=== PATIENT | female | born 1990 | race Caucasian/White ===

== ENCOUNTER 2017-01-01 21:39 | Emergency (ER) | payer SELFPAY ==
[~2017-01-01] VITALS: Ht 167.6 cm; Wt 64.5 kg
[2017-01-01 21:40] VITALS: BP 147/82; PULSE 75; RESP 16; TEMP 98.1; O2SAT 96
== END 2017-01-02 00:38 | disposition left against medical advice (07) ==
LOC: NED 21:39
DX: J00 Acute nasopharyngitis [common cold] (principal)
CPT/HCPCS: 99281

== ENCOUNTER 2017-06-21 18:09 | Emergency (ER) | payer SELFPAY ==
[~2017-06-21] VITALS: Ht 167.6 cm; Wt 65.0 kg
[2017-06-21 18:10] VITALS: BP 134/69; PULSE 70; RESP 16; TEMP 97.8; O2SAT 98
== END 2017-06-21 21:54 | disposition left against medical advice (07) ==
LOC: NED 18:09
DX: N64.4 Mastodynia (principal); Z53.21 Procedure and treatment not carried out due to patient leaving prior to being seen by health care provider
CPT/HCPCS: 99281

== ENCOUNTER 2017-06-26 11:02 | Emergency (ER) | payer MEDICAID ==
[~2017-06-26] VITALS: Ht 167.6 cm; Wt 63.6 kg
[2017-06-26 11:07] VITALS: BP 125/77; PULSE 76; RESP 16; TEMP 98.2; O2SAT 99
[2017-06-26] MEDS ORDERED: BUSP15TA PO (13:10)
[2017-06-26] MEDS ORDERED: GABA300C5 PO (13:10)
--- NOTE | 2017-06-26 13:13 | PD ---
HPI Chief Complaint: Head Injury Time Seen by Provider: 13:00 Travel History International Travel<30 days: No Contact w/Intl Traveler<30days: No Traveled to known affect area: No History of Present Illness HPI Patient is a 26-year-old female presents to emergency room with complaints of headache, neck pain and back pain. Patient reports that she was outside of her home yesterday putting up [place] decorations, patient reports that she fell backwards off a ladder and hit her head on the ground. Reports that she did have loc for a few minutes. Denies taking any anticoagulants at this time. Patient reports that the accident occurred yesterday around 5 PM. Patient reports that she woke up today with posterior headache, reports that the back of her neck as well as her upper back has been hurting her. Denies any chest pain/sob. Denies any abdominal pain. Denies any problems with ambulation. No pain to her extremities. She did not take any medications today for relief of symptoms. PFSH Past Medical History Anxiety: Yes Cancer: No Cardiovascular Problems: No Diabetes: No Diminished Hearing: No Endocrine: No Gastrointestinal Disorders: No Genitourinary: No Hepatitis: No Hiatal Hernia: No Hypertension: No Musculoskeletal: No Neurologic: No Psychiatric: No Reproductive: No Respiratory: Yes (ASTHMA CHILD) Thyroid Disease: No ?: Not LMP: 06/03/2017 : 3 Para: 2 Past Surgical History Abdominal Surgery: No AICD: No Cardiac Surgery: No Ear Surgery: No Endocrine Surgery: No Eye Surgery: No Genitourinary Surgery: No Gynecologic Surgery: No Joint Replacement: No Neurologic Surgery: No Oral Surgery: No Pacemaker: No Thoracic Surgery: No Other Surgery: Yes (RT BREAST MRSA IN MILK DUCT ) Social History Alcohol Use: No Tobacco Use: Yes (2 CIG DAILY) Substance Use: Yes (SEE BELOW) Allergies-Medications (Allergen,Severity, Reaction): Coded Allergies: naproxen (Unverified Allergy, Severe, 06/26/17) penicillin G (Unverified Allergy, Severe, HIVES, 06/26/17) tramadol (Unverified Allergy, Intermediate, Irritation, 06/26/17) Reported Meds & Prescriptions Reported Meds & Active Scripts Active Reported Buspirone (Buspirone HCl) 15 Mg Tab 15 Mg PO TID Gabapentin 300 Mg Cap 300 Mg PO BID Review of Systems General / Constitutional: No: Fever Eyes: No: Visual changes HENT: Positive: Headaches, Neck Pain Cardiovascular: No: Chest Pain or Discomfort Respiratory: No: Shortness of Breath Gastrointestinal: No: Abdominal Pain Genitourinary: No: Dysuria Musculoskeletal: Positive: Pain (upper back pain) Skin: No Rash Neurologic: No: Weakness Psychiatric: No: Depression Endocrine: No: Polydipsia Hematologic/Lymphatic: No: Easy Bruising Physical Exam Narrative GENERAL: mild distress SKIN: Focused skin assessment warm/dry. HEAD: Atraumatic. Normocephalic. EYES: Pupils equal and round. No scleral icterus. No injection or drainage. ENT: No nasal bleeding or discharge. Mucous membranes pink and moist. NECK: Trachea midline. No JVD. NO midline tenderness, patient with paraspinal tenderness CARDIOVASCULAR: Regular rate and rhythm. No murmur appreciated. RESPIRATORY: No accessory muscle use. Clear to auscultation. Breath sounds equal bilaterally. GASTROINTESTINAL: Abdomen soft, non-tender, nondistended. Hepatic and splenic margins not palpable. MUSCULOSKELETAL: No obvious deformities. No clubbing. No cyanosis. No edema. patient with upper and mid thoracic paraspinal tenderness, patient with no midline tenderness to t or l spine, patient ambulating in ER with normal gait NEUROLOGICAL: Awake and alert. No obvious cranial nerve deficits. Motor grossly within normal limits. Normal speech. PSYCHIATRIC: Appropriate mood and affect; insight and judgment normal. Data Data Last Documented VS Vital Signs Date Time Temp Pulse Resp B/P (MAP) Pulse Ox O2 Delivery O2 Flow Rate FiO2 06/26/17 13:19 69 17 119/68 (85) 99 Room Air 06/26/17 11:[address] Brain W/O Iv Contrast(Rout) (06/26/17 ) Spine, Lumbar - Ltd (Ap & Lat) (06/26/17 13:03) Spine, Thoracic-Ap/Lat/Sw(3vw) (06/26/17 13:03) Ct Cerv Spine W/O Contrast (06/26/17 13:03) Acetaminophen (Tylenol) (06/26/17 13:15) MDM Medical Decision Making Medical Screen Exam Complete: Yes Emergency Medical Condition: Yes Medical Record Reviewed: Yes Interpretation(s) Vital Signs Date Time Temp Pulse Resp B/P (MAP) Pulse Ox O2 Delivery O2 Flow Rate FiO2 06/26/17 11:07 98.2 76 16 125/77 (09) 99 Differential Diagnosis Concussion, cervical strain, back pain, fracture Narrative Course 26-year-old female who presents to emergency room with complaints of headache, neck pain and upper thoracic pain after she fell off a ladder yesterday at around 5 PM. Patient reports that she did have an episode where she blacked out. Patient nontoxic on evaluation, patient with normal neurological exam at this time. CT of the head and neck ordered, x-ray of the thoracic and lumbar spine ordered. During the course of the patients emergency department visit, the patients history, examination, and differential diagnosis were reviewed with the patient. The patient was placed on a youth nutritional monitor with oximetry and frequent blood pressure monitoring. The patient was initially provided acetaminophen for pain Radiology studies were reviewed and remarkable for: Last Impressions Thoracic Spine X-Ray 06/26/17 1303 Signed Impressions: Service Date/Time: Monday, June 26, 2017 13:26 - CONCLUSION: No acute disease. Pradip Antonio MD Lumbar Spine X-Ray 06/26/17 1303 Signed Impressions: Service Date/Time: Monday, June 26, 2017 13:27 - CONCLUSION: No acute disease. Pradip Antonio MD Cervical Spine CT 06/26/17 1303 Signed Impressions: Service Date/Time: Monday, June 26, 2017 13:08 - CONCLUSION: 1. No acute fracture or subluxation. Mak Rosen MD Head CT 06/26/17 0000 Signed Impressions: Service Date/Time: Monday, June 26, 2017 13:08 - CONCLUSION: No acute disease. Pradip Antonio MD Patient with no acute fracture or disease on radiological studies. Patient with most likely concussion and muscle strain. A copy of her radiology reports were given to her discharge. Patient follow-up with primary care doctor and will return to the emergency room as needed. Patient requesting a script for a back brace, discussed with her that she can take acetaminophen for pain, patient adamant about getting script for back brace. Discussed with her that she may need to pay for the brace as there is no indication for a back brace at this time. Diagnosis Primary Impression: Concussion Qualified Codes: S06.0X1A - Concussion with loss of consciousness of 30 minutes or less, initial encounter Additional Impressions: Head injury Qualified Codes: S09.90XA - Unspecified injury of head, initial encounter Cervical strain Qualified Codes: S16.1XXA - Strain of muscle, fascia and tendon at neck level , initial encounter Back strain Qualified Codes: S39.012A - Strain of muscle, fascia and tendon of lower back , initial encounter Patient Instructions: General Instructions Additional Instructions: Please provide patient with a copy of her studies at discharge Please follow up with your primary care doctor in 2-3 days Return to the ER if symptoms worsen or progress Return to the ER as needed Please take acetaminophen for pain Disposition: 01 DISCHARGE HOME Condition: Stable Melba Cassidy DO Jun 26, 2017 13:13
[2017-06-26] MEDS ORDERED: ACETAMINOPHEN 325 MG TAB PO ONE (13:15)
[2017-06-26 13:19] VITALS: BP 119/68; PULSE 69; RESP 17; O2SAT 99
--- NOTE | 2017-06-26 13:55 | RADRPT ---
EXAM DATE/TIME: 06/26/2017 13:08 [facility] COMPARISON: No previous studies available for comparison. INDICATIONS : Trauma, fall from ladder. RADIATION DOSE: 13.39 CTDIvol (mGy) MEDICAL HISTORY : None SURGICAL HISTORY : None. ENCOUNTER: Initial ACUITY: 1 day PAIN SCALE: 5/10 LOCATION: neck TECHNIQUE: Volumetric scanning of the cervical spine was performed. Multiplanar reconstructions in the sagittal, coronal and oblique axial planes were performed. Using automated exposure control and adjustment o f the mA and/or kV according to patient size, radiation dose was kept as low as reasonably achievable to obtain optimal diagnostic quality images. DICOM format image data is available electronically f or review and comparison. FINDINGS: Vertebral body heights are maintained. Osseous structures are intact without evidence for acute bony fracture. Dens is intact. Sagittal alignment is maintained. There is a normal C1-2 relationship. Face ts are normally aligned. There is no significant prevertebral soft tissue hematoma. No significant ce rvical adenopathy or gross mass. The thyroid appears unremarkable. Visualized lung apices are clear w ithout pneumothorax. CONCLUSION: 1. No acute fracture or subluxation. Mak Rosen MD on June 26, 2017 at 13:52 Board Certified Radiologist. This report was verified electronically.
--- NOTE | 2017-06-26 13:59 | RADRPT ---
EXAM DATE/TIME: 06/26/2017 13:26 [facility] COMPARISON: No previous studies available for comparison. INDICATIONS : Back pain, fall off ladder. MEDICAL HISTORY : None. SURGICAL HISTORY : None. ENCOUNTER: Initial ACUITY: 2 days PAIN SCORE: 7/10 LOCATION: middle back FINDINGS: There is normal alignment of the thoracic vertebral bodies. Vertebral body height is maintained. No evidence of fracture or subluxation. Pedicles are intact at all levels. The paravertebral reflecti ons are not thickened. CONCLUSION: No acute disease. Pradip Antonio MD on June 26, 2017 at 13:57 Board Certified Radiologist. This report was verified electronically.
--- NOTE | 2017-06-26 14:00 | RADRPT ---
EXAM DATE/TIME: 06/26/2017 13:27 [facility] COMPARISON: No previous studies available for comparison. INDICATIONS : Lower back pain, fall off ladder. MEDICAL HISTORY : None. SURGICAL HISTORY : None. ENCOUNTER: Initial ACUITY: 2 days PAIN SCORE: 9/10 LOCATION: middle lower back FINDINGS: Two view examination was performed. There are five non-rib bearing vertebral bodies. The vertebral bodies are in normal alignment without evidence of subluxation or scoliosis. The disc spaces are ivon ntained. The pedicles are intact. Bony mineralization is normal. No fracture is identified. CONCLUSION: No acute disease. Pradip Antonio MD on June 26, 2017 at 13:58 Board Certified Radiologist. This report was verified electronically.
--- NOTE | 2017-06-26 14:13 | RADRPT ---
EXAM DATE/TIME: 06/26/2017 13:08 [facility] COMPARISON: No previous studies available for comparison. INDICATIONS : Fell off ladder yesterday, loss of consciousness. RADIATION DOSE: 30.45 CTDIvol (mGy) MEDICAL HISTORY : None SURGICAL HISTORY : None. ENCOUNTER: Initial ACUITY: 1 day PAIN SCALE: 5/10 LOCATION: Bilateral cranial TECHNIQUE: Multiple contiguous axial images were obtained of the head. Using automated exposure control and adj ustment of the mA and/or kV according to patient size, radiation dose was kept as low as reasonably a chievable to obtain optimal diagnostic quality images. DICOM format image data is available electro nically for review and comparison. FINDINGS: CEREBRUM: The ventricles are normal for age. No evidence of midline shift, mass lesion, hemorrhage or acute in farction. No extra-axial fluid collections are seen. POSTERIOR FOSSA: The cerebellum and brainstem are intact. The 4th ventricle is midline. The cerebellopontine angle i s unremarkable. EXTRACRANIAL: The visualized portion of the orbits is intact. SKULL: The calvaria is intact. No evidence of skull fracture. CONCLUSION: No acute disease. Pradip Antonio MD on June 26, 2017 at 14:11 Board Certified Radiologist. This report was verified electronically.
== END 2017-06-26 15:18 | disposition home or self-care (01) ==
LOC: NEPD 11:02
DX: S06.0X1A Concussion with loss of consciousness of 30 minutes or less, initial encounter (principal); S16.1XXA Strain of muscle, fascia and tendon at neck level, initial encounter; S39.012A Strain of muscle, fascia and tendon of lower back, initial encounter; W11.XXXA Fall on and from ladder, initial encounter; Y93.89 Activity, other specified; Y92.009 Unspecified place in unspecified non-institutional (private) residence as the place of occurrence of the external cause
CPT/HCPCS: 70450; 72072; 72100; 72125; 99285

== ENCOUNTER 2017-08-22 09:59 | Emergency (ER) | payer MEDICAID ==
[~2017-08-22] VITALS: Ht 167.6 cm; Wt 63.5 kg
[~2017-08-22 09:59] MED LIST: BUSP15TA PO; GABA300C5 PO
[2017-08-22 10:01] VITALS: BP 126/70; PULSE 79; RESP 14; TEMP 97.5; O2SAT 100
--- NOTE | 2017-08-22 11:08 | RADRPT ---
EXAM DATE/TIME: 08/22/2017 10:52 [facility] COMPARISON: CT BRAIN W/O CONTRAST, June 26, 2017, 13:08. INDICATIONS : Patient fell off ladder last night RADIATION DOSE: 32.53 CTDIvol (mGy) MEDICAL HISTORY : None SURGICAL HISTORY : None. ENCOUNTER: Initial ACUITY: 1 day PAIN SCALE: 0/10 LOCATION: Bilateral cranial TECHNIQUE: Multiple contiguous axial images were obtained of the head. Using automated exposure control and adj ustment of the mA and/or kV according to patient size, radiation dose was kept as low as reasonably a chievable to obtain optimal diagnostic quality images. DICOM format image data is available electro nically for review and comparison. FINDINGS: CEREBRUM: The ventricles are normal for age. No evidence of midline shift, mass lesion, hemorrhage or acute in farction. No extra-axial fluid collections are seen. POSTERIOR FOSSA: The cerebellum and brainstem are intact. The 4th ventricle is midline. The cerebellopontine angle i s unremarkable. EXTRACRANIAL: The visualized portion of the orbits is intact. SKULL: The calvaria is intact. No evidence of skull fracture. CONCLUSION: Negative trauma study. Cody Higgins MD on August 22, 2017 at 11:01 Board Certified Radiologist. This report was verified electronically.
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
--- NOTE | 2017-08-22 11:11 | RADRPT ---
EXAM DATE/TIME: 08/22/2017 10:52 [facility] COMPARISON: CT CERVICAL SPINE W/O CONTRAST, June 26, 2017, 13:08. INDICATIONS : Patient fell off ladder RADIATION DOSE: 11.72 CTDIvol (mGy) MEDICAL HISTORY : None SURGICAL HISTORY : None. ENCOUNTER: Initial ACUITY: 1 day PAIN SCALE: 5/10 LOCATION: neck TECHNIQUE: Volumetric scanning of the cervical spine was performed. Multiplanar reconstructions i n the sagittal, coronal and oblique axial planes were performed. Using automated exposure control a nd adjustment of the mA and/or kV according to patient size, radiation dose was kept as low as reason ably achievable to obtain optimal diagnostic quality images. DICOM format image data is available e lectronically for review and comparison. FINDINGS: The sagittal reconstructions demonstrate normal alignment and normal prevertebral soft tissues. The d ens is intact and there is a normal atlantoaxial relationship. The axial images demonstrate that the vertebral bodies and posterior elements are intact. The soft ti ssues are within normal limits. There is no evidence of acute fracture or malalignment. CONCLUSION: Negative trauma CT. Cody Higgins MD on August 22, 2017 at 11:05 Board Certified Radiologist. This report was verified electronically.
[2017-08-22] MEDS ORDERED: LUMBAR BACK BRA1 MIS (11:33)
[2017-08-22] MEDS ORDERED: ACE-2 (11:33)
== END 2017-08-22 11:50 | disposition home or self-care (01) ==
LOC: NEPD 09:59
DX: S09.90XA Unspecified injury of head, initial encounter (principal); R11.0 Nausea; M54.2 Cervicalgia; R41.0 Disorientation, unspecified; M25.561 Pain in right knee; M54.9 Dorsalgia, unspecified; F41.9 Anxiety disorder, unspecified; J45.909 Unspecified asthma, uncomplicated; W11.XXXA Fall on and from ladder, initial encounter
CPT/HCPCS: 70450; 72125; 99283

== ENCOUNTER 2017-10-18 21:13 | Emergency (ER) | payer MEDICAID ==
[~2017-10-18 21:13] MED LIST changes: +ACE-2; +LUMBAR BACK BRA1 MIS
== END 2017-10-18 22:35 | disposition left against medical advice (07) ==
LOC: NED 22:30
DX: S49.92XA Unspecified injury of left shoulder and upper arm, initial encounter (principal); X58.XXXA Exposure to other specified factors, initial encounter
CPT/HCPCS: 99281

== ENCOUNTER 2017-10-21 20:08 | Emergency (ER) | payer MEDICAID ==
[~2017-10-21] VITALS: Ht 167.6 cm; Wt 65.9 kg
[2017-10-21 20:22] VITALS: BP 122/62; PULSE 70; RESP 18; TEMP 98.2; O2SAT 99
--- NOTE | 2017-10-21 21:02 | RADRPT ---
EXAM DATE/TIME: 10/21/2017 20:32 [facility] COMPARISON: No previous studies available for comparison. INDICATIONS : Left hand pain after fall. MEDICAL HISTORY : None. SURGICAL HISTORY : Previous 3rd digit fracture and ORIF. ENCOUNTER: Initial ACUITY: 2 days PAIN SCORE: 8/10 LOCATION: Left hand, 5th metacarpal. FINDINGS: There is a mildly displaced and angulated fracture of the left metacarpal. There is screw fixation ac ross the proximal interphalangeal joint of the third finger. Erosive changes noted on both sides of t he joint. No other discrete erosions. CONCLUSION: 1. Mildly angulated fracture mid shaft fifth metacarpal. Postop change proximal interphalangeal joint third finger. Adriel Healy MD on October 21, 2017 at 20:58 Board Certified Radiologist. This report was verified electronically.
[2017-10-21 22:28] VITALS: BP 109/65; PULSE 70; RESP 18; TEMP 98.2; O2SAT 100
[2017-10-21] MEDS ORDERED: BUSP30TA PO (22:32)
[2017-10-21] MEDS ORDERED: GABA100C4 PO (22:32)
[2017-10-21] MEDS ORDERED: GABA600T PO (22:32)
[2017-10-21] MEDS ORDERED: oxyCODONE/ACETAMINOPHEN 7.5 MG/325 MG TAB PO ONE (22:45)
[2017-10-21] MEDS ORDERED: PERC5TAB12 PO (23:17)
--- NOTE | 2017-10-21 23:17 | PD ---
HPI Chief Complaint: Injury Time Seen by Provider: 22:35 Travel History International Travel<30 days: No Contact w/Intl Traveler<30days: No Traveled to known affect area: No History of Present Illness HPI Patient is a 27-year-old female presenting to the emergency department for evaluation of left hand pain and swelling. Patient states she fell onto her knuckles of last week while walking her dog. Since that time she has had decreased range of motion and pain in addition to swelling. She reports her pain is a 5 out of 10, worse with movement. She denies any numbness, tingling. Symptom onset was sudden, symptoms are moderate in nature, there are no alleviating factors. PFSH Past Medical History Anxiety: Yes Cancer: No Cardiovascular Problems: No Diabetes: No Diminished Hearing: No Endocrine: No Gastrointestinal Disorders: No Genitourinary: No Hepatitis: No Hiatal Hernia: No Hypertension: No Medical other: No Musculoskeletal: No Neurologic: No Psychiatric: No Reproductive: No Respiratory: Yes (ASTHMA CHILD) Thyroid Disease: No Tetanus Vaccination: < 5 Years Influenza Vaccination: No ?: Not LMP: 10/16/17 : 3 Para: 2 Past Surgical History Abdominal Surgery: No AICD: No Cardiac Surgery: No Ear Surgery: No Endocrine Surgery: No Eye Surgery: No Genitourinary Surgery: No Gynecologic Surgery: No Joint Replacement: No Neurologic Surgery: No Oral Surgery: No Pacemaker: No Thoracic Surgery: No Other Surgery: Yes (RT BREAST MRSA IN MILK DUCT, RECONSTRUCTIVE FACIAL) Social History Alcohol Use: No Tobacco Use: Yes (2 CIG DAILY) Substance Use: No Allergies-Medications (Allergen,Severity, Reaction): Coded Allergies: naproxen (Unverified Allergy, Severe, 08/22/17) penicillin G (Unverified Allergy, Severe, HIVES, 08/22/17) tramadol (Unverified Allergy, Intermediate, Irritation, 08/22/17) Reported Meds & Prescriptions Reported Meds & Active Scripts Active Lumbar Back Brace/Support 1 Mis Mis Ea .XX DIRECTED RAY Knee Brace Medium 1 Mis Mis Ea .XX DIRECTED Reported Gabapentin 600 Mg Tab 600 Mg PO HS Gabapentin 100 Mg Cap 100 Mg PO TID Buspirone (Buspirone HCl) 30 Mg Tab 30 Mg PO TID Review of Systems Except as stated in HPI: all other systems reviewed are Neg Musculoskeletal: Positive: Myalgias, Arthralgias, Limited ROM, Edema, Pain Physical Exam Narrative GENERAL: Well-developed, well-nourished, alert female. Presenting in no acute distress. SKIN: Warm and dry. HEAD: Normocephalic. EYES: No scleral icterus. No injection or drainage. NECK: Supple, trachea midline. No JVD or lymphadenopathy. CARDIOVASCULAR: Regular rate and rhythm without murmurs, gallops, or rubs. RESPIRATORY: Breath sounds equal bilaterally. No accessory muscle use. GASTROINTESTINAL: Abdomen soft, non-tender, nondistended. MUSCULOSKELETAL: No cyanosis, mild edema to the dorsal aspect of the left hand is notable over the fifth MCP. 2+ radial pulse, brisk less than 3 second capillary refill. Decreased family resource management specialist strength on the right secondary to pain. BACK: Nontender without obvious deformity. No CVA tenderness. Data Data Last Documented VS Vital Signs Date Time Temp Pulse Resp B/P (MAP) Pulse Ox O2 Delivery O2 Flow Rate FiO2 10/21/17 22:28 98.2 70 18 109/65 (80) 100 Room Air Orders Orders Hand, Complete ([id number]) (10/21/17 ) Oxycodone-Acetamin 7.5-325 Mg (Percocet (10/21/17 22:45) Splinting (10/21/17 ) MDM Medical Decision Making Medical Screen Exam Complete: Yes Emergency Medical Condition: Yes Interpretation(s) Last Impressions Hand X-Ray 10/21/17 0000 Signed Impressions: Service Date/Time: Saturday, October 21, 2017 20:32 - CONCLUSION: 1. Mildly angulated fracture mid shaft fifth metacarpal. Postop change proximal interphalangeal joint third finger. Adriel Healy MD Vital Signs Date Time Temp Pulse Resp B/P (MAP) Pulse Ox O2 Delivery O2 Flow Rate FiO2 10/21/17 22:28 98.2 70 18 109/65 (80) 100 Room Air 10/21/17 20:22 98.2 70 18 122/62 (82) 99 Differential Diagnosis Fracture versus sprain versus strain versus contusion versus other Narrative Course Patient presented with left hand pain after sustaining a mechanical fall, there was no other injury or trauma reported. Patient is neurovascularly intact. Imaging shows a fracture of the fifth MCP. Patient was placed in a splint, she was given Percocet for pain. She will need to follow-up with orthopedic surgeon in 1 week. She is encouraged to return to emergency department for any new or worsening symptoms. Patient verbalized understanding of these instructions. Patient stable for discharge. Diagnosis Primary Impression: Hand fracture, left Qualified Codes: S62.92XA - Unspecified fracture of left wrist and hand, initial encounter for closed fracture Referrals: Orthopaedic Surgeon 1 week Patient Instructions: General Instructions, Hand Fracture (ED) Additional Instructions: Elevate extremity Follow-up with orthopedic surgeon in 1 week Take medications as needed as directed for pain Do not drive or operate machinery while taking narcotic pain medication Return to emergency department for any new worsening symptoms Med/Other Pt SpecificInfo: Prescription(s) given Scripts Oxycodone-Acetaminophen (Percocet) 5-325 mg Tab 1 TAB PO Q6H Y for PAIN, #6 TAB 0 Refills Prov: Bridget Pacheco 10/21/17 Disposition: 01 DISCHARGE HOME Condition: Stable Bridget Pacheco Oct 21, 2017 23:17
== END 2017-10-21 23:46 | disposition home or self-care (01) ==
LOC: NED 20:08 → NEPD 23:46
DX: S62.327A Displaced fracture of shaft of fifth metacarpal bone, left hand, initial encounter for closed fracture (principal); W19.XXXA Unspecified fall, initial encounter; Y93.K1 Activity, walking an animal
CPT/HCPCS: 29125; 73130